=== PATIENT | female | born 1960 | race Caucasian/White ===

== ENCOUNTER 2017-07-01 11:41 | Observation (INO) ==
[2017-07-01 13:06] LABS: Bilirubin,Urine Negative (Negative); Blood,Urine Moderate (Negative); Color,Urine Yellow (Yellow); Glucose,Urine (UA) Normal (Normal); Ketones,Urine Trace mg/dL (Negative); Leukocyte Esterase,Urine Moderate (Negative); Nitrite,Urine Positive (Negative); Protein,Urine Negative (Neg-Trace); Urobilinogen,Urine Normal (Normal)
[2017-07-01 13:08] LABS: Bacteria,Urine Many per hpf (None-Few); Hyaline Casts,Urine Moderate per lpf (None-Few); Squamous Epithelial Cell,Urine Moderate per lpf (None-Few); WBC,Urine 30-50 per hpf (0-3)
[2017-07-01 13:11] LABS: Clarity,Urine Clear (Clear)
[2017-07-01 13:48] LABS: Basophils % 0.4 %; Eosinophils # 0.1 K/mcL (0.0-0.6); Eosinophils % 1.2 %; Hematocrit 36.4 % (35.3-44.9); Hemoglobin 12.3 g/dL (11.5-15.4); Immature Granulocytes % 0.2 % (0-4); Lymphocytes % 19.6 %; Mean Corpuscular HGB Conc 33.8 g/dL (31.6-35.5); Mean Corpuscular Hemoglobin 33.1 pg (28.0-33.3); Mean Corpuscular Volume 97.8 fL (83.0-100.0); Mean Platelet Volume 9.2 fL (9.4-12.4); Monocytes # 0.7 K/mcL (0.0-1.3); Monocytes % 6.5 %; Neutrophils # 7.3 K/mcL (1.6-8.9); Platelet Count 257 K/mcL (140-400); Red Blood Count 3.72 M/mcL (3.82-4.97); Segmented Neutrophils % 72.1 %
[2017-07-01 14:05] LABS: Alanine Aminotransferase 11 Units/L (0-55); Albumin 3.8 g/dL (3.5-5.0); Albumin/Globulin Ratio 1.3 (1.1-2.2); Alkaline Phosphatase 94 Units/L (38-126); Aspartate Amino Transferase 19 Units/L (5-34); BUN/Creatinine Ratio 11 (6-26); Bilirubin,Direct 0.2 mg/dL (0.0-0.5); Bilirubin,Indirect 0.3 mg/dL (0.0-1.2); Bilirubin,Total 0.5 mg/dL (0.2-1.2); Blood Urea Nitrogen 8 mg/dL (7-20); Calcium 9.5 mg/dL (8.6-10.8); Carbon Dioxide 23 mEq/L (19-29); Chloride 105 mEq/L (98-109); Globulin 2.9 g/dL (2.4-3.5); Glucose 96 mg/dL (70-99); Lipase 125 Units/L (8-78); Osmolality,Calculated 284 (280-300); Potassium 3.7 mEq/L (3.5-4.5); Sodium 138 mEq/L (136-145); Total Protein 6.7 g/dL (6.0-8.3); eGFR For African Americans > 60 (> 60); eGFR For Non-African Americans > 60 (> 60)
--- NOTE | 2017-07-01 14:37 | Emergency Department Note ---
Disposition Clinical Impression: Abdominal pain, Pancreatitis, Gastritis, UTI (urinary tract infection), History of gastric bypass Disposition: Admitted As Inpatient Referrals: Kimberly Xie MD [Primary Care Provider] - Forms: ED Satisfaction Letter, Work/School Release General Adult HPI - General Chief complaint: ED Abdominal Pain Stated complaint: abd pain Time Seen by Provider: 07/01/17 14:23 Source: patient Limitations: no limitations - History of Present Illness HPI Narrative: 57-year-old female reports emergency department with severe midepigastric pain which started last evening. There is no history of trauma vomiting or diarrhea. She is not anticoagulated. There is no history of rash or acute back pain. The patient describes been had a previous gastric bypass surgery as well as hysterectomy with complications requiring repair at the [facility]. The patient denies any fever. No chest pain or shortness of breath. There is no history of urinary symptoms or vaginal discharge or bleeding. There is no history of flank pain radiating to the groin. There is been no bloody stool or rectal bleeding she denies any history of gastritis. Pain tolerance the pain is severe in the midepigastric area and reproducible with palpation. Pain Scale: 10 - Related Data Home Medications Medication Instructions Recorded Confirmed Acetaminophen w/Cod 300-30 mg 1 - 2 each PO Q6H PRN 10/07/16 07/01/17 [Tylenol w/Codeine #3] Promethazine [Phenergan] 25 mg PO Q8HR PRN 10/07/16 07/01/17 Calcium Carbonate/Simethicone 1 each PO DAILY PRN 07/01/17 07/01/17 [[place] Heartburn+Gas] Allergies Allergy/AdvReac Type Severity Reaction Status Date / Time acetaminophen [From Percocet] AdvReac Hives Verified 07/01/17 11:57 aspirin [ASA] AdvReac Hives Verified 07/01/17 11:57 cefazolin [From Ancef] AdvReac Hives Verified 07/01/17 11:57 Oxycodone [From Percocet] AdvReac Hives Verified 07/01/17 11:57 Penicillins [PCN] AdvReac Hives Verified 07/01/17 11:57 propoxyphene AdvReac Hives Verified 07/01/17 11:57 [From Darvocet-N] All systems ED: reviewed and negative except as stated. 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 Absent: tenderness - Respiratory Respiratory exam: Present: normal lung sounds bilaterally. Absent: respiratory distress, wheezes, accessory muscle use, prolonged expiratory phase - Cardiovascular Cardiovascular exam: Present: regular rate, normal rhythm, normal heart sounds - Abdominal Exam Abdominal exam: Present: soft, tenderness. Absent: distention, guarding, rebound, rigidity, Coppola's sign, Rovsing's sign, tenderness at McBurney's Point , pulsatile mass Abdominal tenderness: Present: epigastrium - Extremities Exam Extremities exam: Present: normal inspection, full ROM, normal capillary refill. Absent: tenderness, pedal edema, joint swelling, calf tenderness - Expanded Lower Extremity Exam Neurovascular/Tendon exam: Present: normal capillary refill. Absent: motor deficit, sensory deficit, tendon deficit, extremity cold to touch, pallor - Back Exam Back exam: Present: normal inspection, full ROM. Absent: tenderness, CVA tenderness (R), CVA tenderness (L), vertebral tenderness - Neurological Exam Neurological exam: Present: alert, oriented X3, CN II-XII intact. Absent: motor sensory deficit - Psychiatric Psychiatric exam: Present: normal affect, normal mood - Skin Skin exam: Present: warm, dry, intact, normal color. Absent: rash, cyanosis, diaphoresis, erythema, pallor, mottled Course Vital Signs Temperature 97.9 F 07/01/17 11:53 Pulse Rate 81 07/01/17 11:53 Respiratory Rate 16 07/01/17 11:53 Blood Pressure 124/81 07/01/17 11:53 O2 Sat by Pulse Oximetry 99 07/01/17 11:53 Temperature 97.9 F 07/01/17 11:53 Pulse Rate 67 07/01/17 17:31 Respiratory Rate 16 07/01/17 17:31 Blood Pressure 128/60 07/01/17 17:31 O2 Sat by Pulse Oximetry 98 07/01/17 17:31 Oxygen Delivery Oxygen Delivery Room Air Medical Decision Making - MDM Narrative Medical decision making narrative: The patient describes severe midepigastric pain. EKG and troponin negative. Chest x-ray negative. CT scan reveals what appears to be gastric inflammation, there is no evidence of beau obstruction although a non-oral contrast study was obtained. The patient's lipase is somewhat elevated, she demonstrates urinalysis consistent with UTI Cipro was given IV. I lauded and Zofran were given in the ED as well as Protonix. The patient has had multiple abdominal surgeries including gastric bypass in the past. She appears to be stable. Based on the patient's apparent gastric inflammation, elevated lipase, and UTI, I felt it would be appropriate to admit the patient for observation. She is highly agreeable secondary to her concerns for severe abdominal pain. I reviewed the case with the hospitalist on-call who has accepted the patient to their care. - Lab Data Lab results reviewed: Yes I reviewed the patient's lab results. Result diagrams: 07/01/17 13:39 07/01/17 13:39 Lab Results 07/01/17 07/01/17 07/01/17 Range/Units 12:50 13:39 13:39 WBC 10.2 (4.3-11.1) K/mcL RBC 3.72 L (3.82-4.97) M/mcL Hgb 12.3 (11.5-15.4) g/dL Hct 36.4 (35.3-44.9) % MCV 97.8 (83.0-100.0) fL MCH 33.1 (28.0-33.3) pg MCHC 33.8 (31.6-35.5) g/dL RDW 12.0 (11.5-14.5) % Plt Count 257 (140-400) K/mcL MPV 9.2 L (9.4-12.4) fL Immature Gran % 0.2 (0-4) % Seg Neutrophils % 72.1 % Lymphocytes % 19.6 % Monocytes % 6.5 % Eosinophils % 1.2 % Basophils % 0.4 % Neutrophils # 7.3 (1.6-8.9) K/mcL Lymphocytes # 2.0 (0.6-4.6) K/mcL Monocytes # 0.7 (0.0-1.3) K/mcL Eosinophils # 0.1 (0.0-0.6) K/mcL Basophils # 0.0 (0.0-0.2) K/mcL Sodium 138 (136-145) mEq/L Potassium 3.7 (3.5-4.5) mEq/L Chloride 105 (98-109) mEq/L Carbon Dioxide 23 (19-29) mEq/L BUN 8 (7-20) mg/dL Creatinine 0.70 (0.57-1.11) mg/dL Est GFR ( Amer) > 60 (> 60) Est GFR (Non-Af Amer) > 60 (> 60) BUN/Creatinine Ratio 11 (6-26) Glucose 96 (70-99) mg/dL Calculated Osmolality 284 (280-300) Lactic Acid (0.5-2.2) mmol/L Calcium 9.5 (8.6-10.8) mg/dL Total Bilirubin 0.5 (0.2-1.2) mg/dL Direct Bilirubin 0.2 (0.0-0.5) mg/dL Indirect Bilirubin 0.3 (0.0-1.2) mg/dL AST 19 (5-34) Units/L ALT 11 (0-55) Units/L Alkaline Phosphatase 94 (38-126) Units/L Troponin I (0-0.03) ng/mL C-Reactive Protein (Less than 5) mg/L Serum Total Protein 6.7 (6.0-8.3) g/dL Albumin 3.8 (3.5-5.0) g/dL Globulin 2.9 (2.4-3.5) g/dL Albumin/Globulin Ratio 1.3 (1.1-2.2) Lipase 125 H (8-78) Units/L Urine Color Yellow (Yellow) Urine Clarity Clear (Clear) Urine pH 6.0 (5.0-8.0) pH Units Ur Specific [place] 1.020 (1.010-1.025) Urine Protein Negative (Neg-Trace) mg/dL Urine Glucose (UA) Normal (Normal) mg/dL Urine Ketones Trace H (Negative) mg/dL Urine Blood Moderate H (Negative) Urine Nitrite Positive A (Negative) Urine Bilirubin Negative (Negative) Urine Urobilinogen Normal (Normal) mg/dL Ur Leukocyte Esterase Moderate H (Negative) Urine Microscopic RBC 3-5 H (0-3) per hpf Urine Microscopic WBC 30-50 H (0-3) per hpf Ur Squamous Epith Cells Moderate H (None-Few) per lpf Urine Bacteria Many H (None-Few) per hpf Hyaline Casts Moderate H (None-Few) per lpf 07/01/17 07/01/17 07/01/17 Range/Units 14:55 14:55 14:55 WBC (4.3-11.1) K/mcL RBC (3.82-4.97) M/mcL Hgb (11.5-15.4) g/dL Hct (35.3-44.9) % MCV (83.0-100.0) fL MCH (28.0-33.3) pg MCHC (31.6-35.5) g/dL RDW (11.5-14.5) % Plt Count (140-400) K/mcL MPV (9.4-12.4) fL Immature Gran % (0-4) % Seg Neutrophils % % Lymphocytes % % Monocytes % % Eosinophils % % Basophils % % Neutrophils # (1.6-8.9) K/mcL Lymphocytes # (0.6-4.6) K/mcL Monocytes # (0.0-1.3) K/mcL Eosinophils # (0.0-0.6) K/mcL Basophils # (0.0-0.2) K/mcL Sodium (136-145) mEq/L Potassium (3.5-4.5) mEq/L Chloride (98-109) mEq/L Carbon Dioxide (19-29) mEq/L BUN (7-20) mg/dL Creatinine (0.57-1.11) mg/dL Est GFR ( Amer) (> 60) Est GFR (Non-Af Amer) (> 60) BUN/Creatinine Ratio (6-26) Glucose (70-99) mg/dL Calculated Osmolality (280-300) Lactic Acid 0.6 (0.5-2.2) mmol/L Calcium (8.6-10.8) mg/dL Total Bilirubin (0.2-1.2) mg/dL Direct Bilirubin (0.0-0.5) mg/dL Indirect Bilirubin (0.0-1.2) mg/dL AST (5-34) Units/L ALT (0-55) Units/L Alkaline Phosphatase (38-126) Units/L Troponin I 0.02 (0-0.03) ng/mL C-Reactive Protein 6 H (Less than 5) mg/L Serum Total Protein (6.0-8.3) g/dL Albumin (3.5-5.0) g/dL Globulin (2.4-3.5) g/dL Albumin/Globulin Ratio (1.1-2.2) Lipase (8-78) Units/L Urine Color (Yellow) Urine Clarity (Clear) Urine pH (5.0-8.0) pH Units Ur Specific [place] (1.010-1.025) Urine Protein (Neg-Trace) mg/dL Urine Glucose (UA) (Normal) mg/dL Urine Ketones (Negative) mg/dL Urine Blood (Negative) Urine Nitrite (Negative) Urine Bilirubin (Negative) Urine Urobilinogen (Normal) mg/dL Ur Leukocyte Esterase (Negative) Urine Microscopic RBC (0-3) per hpf Urine Microscopic WBC (0-3) per hpf Ur Squamous Epith Cells (None-Few) per lpf Urine Bacteria (None-Few) per hpf Hyaline Casts (None-Few) per lpf - Radiology Data Radiology results reviewed: Yes I reviewed the patient's radiology results.
[2017-07-01] MEDS ORDERED: *HR* HYDROmorphone (PF) 1 MG/ML SYRINGE IVP ONE (16:37)
[2017-07-01] MEDS ORDERED: Ondansetron 4 MG/2 ML VIAL IVP ONE (16:37)
[2017-07-01] MEDS ORDERED: Pantoprazole 40 MG VIAL IVP ONE (16:56)
[2017-07-01] MEDS ORDERED: Naloxone 0.4 MG/ML INJ IVP PRN (20:15)
[2017-07-01] MEDS ORDERED: GI Cocktail 40 ML EACH PO ONE (20:17)
--- NOTE | 2017-07-01 20:24 | Internal Med History&Physical ---
Date of Encounter: 07/01/17 Time of Encounter: 20:20 Assessment and Plan (1) Gastritis Current visit: Yes Status: Acute epigastric pain likely secondary to Gastritis will continue IV protonix BID will give patient GI cocktail at this time Added Carafate QID pain control clear liquid diet at this time Phenergan prn n/v elevated lipase but CT findings negative for any pancreatic etiology and patient 's clinical presentation not consistent with pancreatitis will continue supportive care, consider GI evaluation for an EGD if symptoms persist despite the above management. Qualifiers: Gastritis type: unspecified gastritis Chronicity: acute Gastritis bleeding: without bleeding Qualified Code(s): K29.00 - Acute gastritis without bleeding (2) UTI (urinary tract infection) Current visit: Yes Status: Acute Will continue IV abx f/u urine cultures Qualifiers: Urinary tract infection type: acute cystitis Hematuria presence: without hematuria Qualified Code(s): N30.00 - Acute cystitis without hematuria (3) Tobacco abuse Current visit: No Status: Chronic smoking cessation counseling provided patient not ready to quit at this time Pt refused nicotine supplementation (4) History of gastric bypass Current visit: Yes Status: Chronic (5) DVT prophylaxis Current visit: Yes Status: Acute Heparin SQ Internal Medicine - H&P: HPI Chief complaint: epigastric pain Admitted From: Home Plans for Post Hospital Care: Home History of present illness: Ms. Xiong is a 57 year old female with PMH of gastric bypass 15years ago, GERD, and hysterectomy with bladder complications presented to the hospital for evaluation of worsening epigastric pain x 1 day. Patient reports of waking up with localized sharp epigastric pain yesterday morning which persisted through out the day despite her taking her antiacids at home. She states she has been nauseous which has been relieved by Phenergan at home. States she gets this epigastric pain time to time but has never persisted for this long. Reports of the pain being unbearable today which prompted her visit to the ER. She denies any alleviating or exacerbating factors. Denies any alcohol use. Reports of being an every day smoker. States the pain is localized with no radiation. Patient is reproducible with palpation. Also noted to have a UTI, states she has history of recurrent UTIs but denies any dysuria at this time. Denies any headache, sob, chest pain, fevers, or chills. Social history: Every day smoker (1ppd), denies alcohol use Code status: Full code Past Med Surg Social Fam HX - Past Medical History Medical history: GERD, other Psychiatric history: no psych history - Past Surgical History Surgical History: hysterectomy - Social History Smoking Status: Current every day smoker Smokeless Tobacco Status: No Alcohol use: none Drug use: none - Family History Mother Adopted: [place]: Maricel Patiño Age: 73 Living Status: Age at : 73 Cause of : end stage copd Hx Family Cardiac Disorders: No Hx Family Respiratory Disorders: Yes Hx Family Cancer: No Hx Family GI Disorders: No Hx Family Genitourinary Disorders: No Hx Family Endocrine Disorder: Yes Hx Family Musculoskeletal Disorders: No Hx Family Neurologic Disorders: No Hx Family HEENT Disorders: No Hx Family Autoimmune Disorders: No Hx Family Reproductive Disorders: No Hx Family Psychosocial Disorders: No Hx Family Medical Disorders: No Internal Medicine - H&P: Meds Acetaminophen w/Cod 300-30 mg [Tylenol w/Codeine #3] 1 - 2 each PO Q6H PRN 10/07 [History] Promethazine [Phenergan] 25 mg PO Q8HR PRN 10/07/16 [History] Calcium Carbonate/Simethicone [[place] Heartburn+Gas] 1 each PO DAILY PRN 07/01/17 [History] 3 Allergy/AdvReac Type Severity Reaction Status Date / Time acetaminophen [From Percocet] AdvReac Hives Verified 07/01/17 11:57 aspirin [ASA] AdvReac Hives Verified 07/01/17 11:57 cefazolin [From Ancef] AdvReac Hives Verified 07/01/17 11:57 Oxycodone [From Percocet] AdvReac Hives Verified 07/01/17 11:57 Penicillins [PCN] AdvReac Hives Verified 07/01/17 11:57 propoxyphene AdvReac Hives Verified 07/01/17 11:57 [From Darvocet-N] All Systems PM: A 10-system review of systems was performed and is negative for pertinent findings except as documented above in the HPI. - Constitutional Constitutional: as per HPI - Constitutional Vitals: Temp Pulse Resp BP Pulse Ox 98.8 F 57 15 114/55 98 07/01/17 18:28 07/01/17 18:28 07/01/17 18:28 07/01/17 18:28 07/01/17 18:28 General appearance: Present: cooperative, A&O X 3, pleasant, no acute distress, answers questions appropriately - Head Head exam: Present: atraumatic, normocephalic - Eye Eye exam: Present: conjuntiva pink, sclera anicteric - Respiratory Respiratory exam: Present: CTAB. Absent: accessory muscle use, rales, rhonchi, wheezes - Cardiovascular Cardiovascular exam: Present: RRR, +S1, +S2. Absent: diastolic murmur, gallop, rubs, systolic murmur - GI/Abdominal GI/Abdominal exam: Present: normal bowel sounds, soft, tenderness (epigastric tenderness to palpation), no peritoneal signs. Absent: distended - Extremities Exam Extremities exam: Present: warm, radial pulses palpable and symmetrical. Absent : calf tenderness, cyanotic, pedal edema - Neurological Exam Neurological exam: Present: alert, oriented X3 - Psychiatric Psychiatric exam: Present: normal affect, normal mood Internal Med - H&P Results - Labs CBC & Chem 7: 07/01/17 13:39 07/01/17 13:39
[2017-07-01] MEDS: *HR* Promethazine 25 MG/ML VIAL IVP PRN (21:05)
[2017-07-01] MEDS: 0.9 % Sodium Chloride 1,000 ML IVC SCH (21:06)
[2017-07-01] MEDS: Sucralfate 1 GM TABLET PO SCH (21:58)
[2017-07-02] MEDS: *HR* Morphine 2 MG/ML SYRINGE IVP PRN ×2 (04:03→10:36)
[2017-07-02] MEDS: *HR* Promethazine 25 MG/ML VIAL IVP PRN ×4 (04:06→23:32)
[2017-07-02 05:13] LABS: Basophils % 0.7 %; Eosinophils # 0.3 K/mcL (0.0-0.6); Eosinophils % 4.4 %; Hematocrit 33.5 % (35.3-44.9); Hemoglobin 11.3 g/dL (11.5-15.4); Immature Granulocytes % 0.4 % (0-4); Lymphocytes # 2.2 K/mcL (0.6-4.6); Lymphocytes % 39.2 %; Mean Corpuscular HGB Conc 33.7 g/dL (31.6-35.5); Mean Corpuscular Hemoglobin 33.4 pg (28.0-33.3); Mean Corpuscular Volume 99.1 fL (83.0-100.0); Mean Platelet Volume 9.8 fL (9.4-12.4); Monocytes # 0.5 K/mcL (0.0-1.3); Monocytes % 9.1 %; Neutrophils # 2.6 K/mcL (1.6-8.9); Platelet Count 204 K/mcL (140-400); Red Blood Count 3.38 M/mcL (3.82-4.97); Segmented Neutrophils % 46.2 %
[2017-07-02] MEDS: *HR* Heparin 5,000 UNIT/ML VIAL SQ SCH ×2 (05:33→17:00)
[2017-07-02] MEDS: Pantoprazole 40 MG VIAL IVP SCH ×2 (05:33→16:53)
[2017-07-02 05:34] LABS: Alanine Aminotransferase 10 Units/L (0-55); Albumin 3.2 g/dL (3.5-5.0); Albumin/Globulin Ratio 1.2 (1.1-2.2); Alkaline Phosphatase 80 Units/L (38-126); Aspartate Amino Transferase 18 Units/L (5-34); BUN/Creatinine Ratio 9 (6-26); Bilirubin,Total 0.6 mg/dL (0.2-1.2); Blood Urea Nitrogen 6 mg/dL (7-20); Calcium 8.9 mg/dL (8.6-10.8); Carbon Dioxide 25 mEq/L (19-29); Chloride 107 mEq/L (98-109); Globulin 2.6 g/dL (2.4-3.5); Glucose 95 mg/dL (70-99); Osmolality,Calculated 287 (280-300); Phosphorous 3.7 mg/dL (2.3-4.7); Potassium 3.7 mEq/L (3.5-4.5); Sodium 140 mEq/L (136-145); Total Protein 5.8 g/dL (6.0-8.3); eGFR For African Americans > 60 (> 60); eGFR For Non-African Americans > 60 (> 60)
[2017-07-02] MEDS: Sucralfate 1 GM TABLET PO SCH ×3 (07:50→22:27)
[2017-07-02] MEDS: *HR* HYDROmorphone (PF) 1 MG/ML SYRINGE IVP PRN ×4 (07:50→23:32)
--- NOTE | 2017-07-02 09:49 | Internal Med Progress Note ---
<Bryan Ulloa - Last Filed: 07/02/17 14:56> Date of Encounter: 07/02/17 Time of Encounter: 08:45 - Assessment and plan (1) Abdominal pain Current Visit: Yes Status: Acute Assessment and plan: epigastric abd pn likely secondary to peptic ulcer disease. Patient with hx of gerd sxs on home zantac GI consulted for EGD EGD revealed 2cm ulcer continue PPI BID Continue Carafate QID Continue Phenergan prn due to epigastric nature of pain and hx of tobacco use will check and echo to monitor cardiac function. Qualifiers: Abdominal location: epigastric Qualified Code(s): R10.13 - Epigastric pain (2) UTI (urinary tract infection) Current Visit: Yes Status: Acute Assessment and plan: present upon admission continue Abx ucx pending. Qualifiers: Urinary tract infection type: acute cystitis Hematuria presence: without hematuria Qualified Code(s): N30.00 - Acute cystitis without hematuria (3) History of gastric bypass Current Visit: Yes Status: Chronic (4) Tobacco abuse Current Visit: No Status: Chronic Assessment and plan: pt refusing nicotine supplementation at this time. - Subjective Interval history: Patient complaining of epigastric x 1 day. She has been taking zantac at home s relief. She reports nausea denies vomiting or diarrhea. No blood in stool. Pt denies Chest pain, SOB, dysuria. - Constitutional Vitals: Temp Pulse Resp BP Pulse Ox 97.7 F 91 17 112/73 96 07/02/17 06:59 07/02/17 06:59 07/02/17 06:59 07/02/17 06:59 07/02/17 06:59 General appearance: Present: cooperative, A&O X 3, pleasant, no acute distress, answers questions appropriately - Head Head exam: Present: atraumatic, normocephalic - Eye Eye exam: Present: PERRL, conjuntiva pink, sclera anicteric Pupils: Present: PERRL - Neck Neck exam general surgery: Present: supple, trachea midline - Respiratory Respiratory exam: Present: CTAB. Absent: accessory muscle use, rales, rhonchi, wheezes - Cardiovascular Cardiovascular exam: Present: RRR, +S1, +S2. Absent: diastolic murmur, gallop, rubs, systolic murmur - GI/Abdominal GI/Abdominal exam: Present: normal bowel sounds, soft, tenderness (epigastric region), no peritoneal signs. Absent: distended - Extremities Exam Extremities exam: Present: warm. Absent: calf tenderness, cyanotic, pedal edema - Neurological Exam Neurological exam: Present: alert, oriented X3. Absent: facial droop, speech deficit - Skin Skin exam: Present: dry, intact Internal Medicine: Result - Labs CBC & Chem 7: 07/02/17 04:21 07/02/17 04:21 Labs: Short CBC 07/02/17 Range/Units 04:21 WBC 5.7 (4.3-11.1) K/mcL Hgb 11.3 L (11.5-15.4) g/dL Hct 33.5 L (35.3-44.9) % Plt Count 204 (140-400) K/mcL Neutrophils # 2.6 (1.6-8.9) K/mcL BMP 07/02/17 04:21 Sodium 140 Potassium 3.7 Chloride 107 Carbon Dioxide 25 BUN 6 L Creatinine 0.69 Glucose 95 Calcium 8.9 Liver Function 07/02/17 Range/Units 04:21 Total Bilirubin 0.6 (0.2-1.2) mg/dL AST 18 (5-34) Units/L ALT 10 (0-55) Units/L Alkaline Phosphatase 80 (38-126) Units/L Albumin 3.2 L (3.5-5.0) g/dL Consult Discharge Plan - Plan Referrals: Kimberly Xie MD [Primary Care Provider] - <Willis Marie P - Last Filed: 07/02/17 16:53> Date of Encounter: 07/02/17 - Constitutional Vitals: Temp Pulse Resp BP Pulse Ox 97.9 F 47 16 111/71 99 07/02/17 15:15 07/02/17 15:15 07/02/17 15:15 07/02/17 15:15 07/02/17 15:15 Internal Medicine: Result - Labs CBC & Chem 7: 07/02/17 04:21 07/02/17 04:21 Labs: Short CBC 07/02/17 Range/Units 04:21 WBC 5.7 (4.3-11.1) K/mcL Hgb 11.3 L (11.5-15.4) g/dL Hct 33.5 L (35.3-44.9) % Plt Count 204 (140-400) K/mcL Neutrophils # 2.6 (1.6-8.9) K/mcL BMP 07/02/17 04:21 Sodium 140 Potassium 3.7 Chloride 107 Carbon Dioxide 25 BUN 6 L Creatinine 0.69 Glucose 95 Calcium 8.9 Cardiac Enzymes 07/02/17 Range/Units 09:25 Troponin I 0.00 (0-0.03) ng/mL Liver Function 07/02/17 Range/Units 04:21 Total Bilirubin 0.6 (0.2-1.2) mg/dL AST 18 (5-34) Units/L ALT 10 (0-55) Units/L Alkaline Phosphatase 80 (38-126) Units/L Albumin 3.2 L (3.5-5.0) g/dL - Attending Attestation I examined this patient and my medical decision-making was reviewed with the Resident Physician. I agree with the documented findings, disposition and treatment plan as described except to the extent set forth below.
[2017-07-02] MEDS ORDERED: *HR* Midazolam HCl 5 MG/5 ML VIAL IVP ONE (11:19)
[2017-07-02] MEDS ORDERED: *HR* FentaNYL (PF) 100 MCG/2 ML VIAL ONE (11:19)
[2017-07-02] MEDS ORDERED: Simethicone 40 MG/0.6 ML MLS IR ONE (11:23)
[2017-07-02] MEDS ORDERED: *HR* Midazolam HCl 5 MG/5 ML VIAL IVP PRN (11:23)
[2017-07-02] MEDS ORDERED: Tetracaine/Benzocaine/Butamben 200MG/SPRAY (100SPY/BOT) MM ONE (11:23)
[2017-07-02] MEDS ORDERED: *HR* FentaNYL (PF) 100 MCG/2 ML VIAL IVP PRN (11:23)
--- NOTE | 2017-07-02 11:34 | Pre-Sedation Evaluation ---
Pre-sedation evaluation - Pre-sedation checklist Recent Vitals: Last Vital Signs Temp 98.2 F 07/02/17 11:18 Pulse 53 07/02/17 11:18 Resp 18 07/02/17 11:18 BP 103/64 07/02/17 11:18 Pulse Ox 97 07/02/17 11:18 H&P (including ROS) documented in medical record: Yes Previous reaction to sedatives/anesthetics: No Dietary Status: Clear fluids after Midnight Possible difficult airway: No ASA Classification *see protocol: CLASS II-Mild systemic disease
--- NOTE | 2017-07-02 12:00 | Gastroenterology Consult Note ---
<Carlos Omer - Last Filed: 07/02/17 11:58> Date of Encounter: 07/02/17 Time of Encounter: 10:15 - Assessment and plan (1) Abdominal pain Status: Acute Assessment and plan: Pt with epigastric pain. She has been taking Zantac at home which is not controlling her symptoms. Plan for EGD today to r/o esophagitis, gastritis, duodenitis, PUD, MW tear, or AVM. Continue Protonix. Lipase is elevated to [address] findings negative for any pancreatic etiology and patient's clinical presentation not consistent with pancreatitis. Qualifiers: Abdominal location: epigastric Qualified Code(s): R10.13 - Epigastric pain (2) History of gastric bypass Status: Chronic - Time Spent With Patient Total time spent is greater than 50% in coordination of care (as documented) at patient's floor/unit and/or counseling patient: GI History of Present Illness - Data of Consult Patient: new to practice Consult date: 07/02/17 Requesting Physician: Cassi Sullivan MD - Consult Narrative Reason for consult: GERD, EGD History of present illness: Ms. Xiong is a 57 year old female with PMHx of GERD, s/p gastric bypass 15 years ago who presented for evaluation of epigastric pain 1 day. Patient reports of waking up with localized sharp epigastric pain (no radiation) which persisted through out the day despite her taking her antiacids at home. She states she has been nauseous which has been relieved by Phenergan at home. States she gets this epigastric pain time to time but has never persisted for this long. No exacerbating or alleviating factors. Patient denies any alcohol use. She denies fevers, chills, test pain, shortness of breath, nausea, vomiting , melena, hematochezia. CT scan reveals what appears to be gastric inflammation , there is no evidence of beau obstruction. Lipase is elevated to [address] findings negative for any pancreatic etiology and patient's clinical presentation not consistent with pancreatitis. Procedures: EGD 03/04/2011 Dr. Rm: Normal, intact gastric pouch Colonoscopy 09/02/2005 Dr. Rm: Left colon biopsy with melanosis coli. NSAIDs: None Anticoagulation: None Past Med Surg Social Fam HX - Past Medical History Medical history: GERD, other Psychiatric history: no psych history - Past Surgical History Surgical History: hysterectomy - Social History Smoking Status: Current every day smoker Smokeless Tobacco Status: No Alcohol use: none Drug use: none - Family History Mother Adopted: Organ: Maricel Patiño Age: 73 Living Status: Age at : 73 Cause of : end stage copd Hx Family Cardiac Disorders: No Hx Family Respiratory Disorders: Yes Hx Family Cancer: No Hx Family GI Disorders: No Hx Family Genitourinary Disorders: No Hx Family Endocrine Disorder: Yes Hx Family Musculoskeletal Disorders: No Hx Family Neurologic Disorders: No Hx Family HEENT Disorders: No Hx Family Autoimmune Disorders: No Hx Family Reproductive Disorders: No Hx Family Psychosocial Disorders: No Hx Family Medical Disorders: No - Gastrointestinal Gastrointestinal: Present: as per HPI - Constitutional Constitutional: as per HPI - EENT Eyes: as per HPI Ears: Present: as per HPI Nose, mouth and throat: Present: as per HPI - Cardiovascular Cardiovascular ROS: Present: as per HPI - Respiratory Respiratory IM: Present: as per HPI - Genitourinary Genitourinary: Absent: change in color, Urinary frequency - Neurological ROS Neurological GI: Present: as per HPI - Hematologic/Lymphatic Hematologic/Lymphatic pediatric: Present: as per HPI - Musculoskeletal Musculoskeletal ROS GI: Present: as per HPI - Integumentary Integumentary GI: Present: as per HPI - Psychiatric ROS Psychiatric GI: Present: as per HPI - Endocrine Endocrine IM: Present: as per HPI - Constitutional Vitals: Temp Pulse Resp BP Pulse Ox 98.2 F 70 14 94/59 98 07/02/17 11:35 07/02/17 11:45 07/02/17 11:45 07/02/17 11:45 07/02/17 11:45 General appearance: Present: cooperative, A&O X 3, no acute distress, answers questions appropriately - Head Head exam: Present: atraumatic, normocephalic - Eye Eye exam: Present: normal appearance, sclera anicteric - ENT ENT exam: Present: mucous membranes dry - Neck Neck exam general surgery: Present: normal inspection, trachea midline - Respiratory Respiratory exam: Present: CTAB. Absent: rales, rhonchi - Cardiovascular Cardiovascular exam: Present: RRR, +S1, +S2 - GI/Abdominal GI/Abdominal exam: Present: normal bowel sounds, soft, tenderness (epigastric), no peritoneal signs. Absent: distended, firm, guarding - Rectal Rectal exam: Present: deferred - Extremities Exam Extremities exam: Present: warm - Neurological Exam Neurological exam: Present: no focal deficits - Psychiatric Psychiatric exam: Present: normal affect, normal mood - Skin Skin exam: Present: dry, intact, normal color, warm Results - Labs CBC & Chem 7: 07/02/17 04:21 07/02/17 04:21 Labs: Last Result Calcium 8.9 mg/dL (8.6-10.8) 07/02/17 04:21 Troponin I 0.00 ng/mL (0-0.03) 07/02/17 09:25 C-Reactive Protein 6 mg/L (Less than 5) H 07/01/17 14:55 Entire Visit Hgb 11.3 g/dL (11.5-15.4) L 07/02/17 04:21 Hct 33.5 % (35.3-44.9) L 07/02/17 04:21 Total Bilirubin 0.6 mg/dL (0.2-1.2) 07/02/17 04:21 AST 18 Units/L (5-34) 07/02/17 04:21 ALT 10 Units/L (0-55) 07/02/17 04:21 Lipase 125 Units/L (8-78) H 07/01/17 13:39 Consult Discharge Plan - Plan Instructions: Gastritis (DC), Urinary Tract Infection in Women (DC) Referrals: Donny Vallejo MD [Partnered Physician] - Kimberly Xie MD [Primary Care Provider] - Prescriptions: Sucralfate [Carafate] 1 gm PO DA #120 tablet <Donny Vallejo - Last Filed: 07/05/17 17:09> Date of Encounter: 07/02/17 - Time Spent With Patient Total time spent is greater than 50% in coordination of care (as documented) at patient's floor/unit and/or counseling patient: GI History of Present Illness - Data of Consult Requesting Physician: Cassi Sullivan MD - Consult Narrative History of present illness: Ms. Xiong is a 57 year old female - Constitutional Vitals: Temp Pulse Resp BP Pulse Ox 96.9 F L 62 16 104/71 97 07/03/17 06:49 07/03/17 06:49 07/03/17 06:49 07/03/17 06:49 07/03/17 06:49 Results - Labs CBC & Chem 7: 07/03/17 04:34 07/03/17 04:34 Labs: Last Result Calcium 8.8 mg/dL (8.6-10.8) 07/03/17 04:34 Troponin I 0.00 ng/mL (0-0.03) 07/02/17 09:25 C-Reactive Protein 6 mg/L (Less than 5) H 07/01/17 14:55 Entire Visit Hgb 11.6 g/dL (11.5-15.4) 07/03/17 04:34 Hct 35.0 % (35.3-44.9) L 07/03/17 04:34 Total Bilirubin 0.6 mg/dL (0.2-1.2) 07/02/17 04:21 AST 18 Units/L (5-34) 07/02/17 04:21 ALT 10 Units/L (0-55) 07/02/17 04:21 Lipase 125 Units/L (8-78) H 07/01/17 13:39 - Impressions Impressions Echocardiogram 07/02/17 09:10 Impressions: LVEF 60%. Normal left ventricular size and systolic function. There is evidence of mild diastolic dysfunction of the left ventricle. Normal right ventricular size and function. No significant valvular dysfunction. No pulmonary hypertension by TR gradient. Left Ventricular Wall Motion: Rest Echo Findings All wall segments showed normal motion. Findings: Study Quality * Technically adequate exam. ECG Findings * Normal sinus rhythm. Left Ventricle * LVEF 60%. * Normal LV chamber size, wall thickness and function. * Mild left ventricular diastolic dysfunction. Aorta * Normally sized aortic root. Aortic Valve * No aortic regurgitation. * Trileaflet aortic valve. * Normal aortic valve structure. * No aortic stenosis. Mitral Valve * No mitral stenosis. * Mild mitral annular calcification * Trace mitral regurgitation. * Mildly calcified mitral valve leaflets. Tricuspid Valve * Trace tricuspid regurgitation. * Normal tricuspid valve structure. Right Ventricle * Normal right ventricular structure and function. Left Atrium * Moderately dilated left atrium. Right Atrium * Normal right atrial size. Pulmonary Artery * Pulmonary artery not well visualized. Interatrial Septum * Interatrial septum not well evaluated. Pulmonic Valve * Pulmonic valve is not well visualized. * No pulmonic stenosis. * No pulmonic regurgitation. Pericardium * There is no pericardial effusion present. IVC * The IVC is not well evaluated. - Attending Attestation 57 year old female admitted with epigastric pain and worsening anemia S/P gastric bypass faithfully taking her iron supplementation daily per patient. Personally interviewed and examined her. Patient may need IV iron, oral iron not producing adequate correction of her anemia. She also has CKD on HD will check if she is also getting Procrit. Agree with above data and assessment
[2017-07-02] MEDS: 0.9 % Sodium Chloride 1,000 ML IVC SCH (12:16)
[2017-07-03] MEDS: 0.9 % Sodium Chloride 1,000 ML IVC SCH (01:45)
[2017-07-03 05:46] LABS: Hemoglobin 11.6 g/dL (11.5-15.4); Mean Corpuscular HGB Conc 33.1 g/dL (31.6-35.5); Mean Corpuscular Hemoglobin 33.2 pg (28.0-33.3); Mean Corpuscular Volume 100.3 fL (83.0-100.0); Platelet Count 231 K/mcL (140-400); Red Blood Count 3.49 M/mcL (3.82-4.97); Red Cell Distribution Width 12.1 % (11.5-14.5)
[2017-07-03 05:58] LABS: BUN/Creatinine Ratio 13 (6-26); Blood Urea Nitrogen 10 mg/dL (7-20); Calcium 8.8 mg/dL (8.6-10.8); Carbon Dioxide 24 mEq/L (19-29); Chloride 111 mEq/L (98-109); Glucose 98 mg/dL (70-99); Osmolality,Calculated 291 (280-300); Potassium 3.8 mEq/L (3.5-4.5); Sodium 141 mEq/L (136-145); eGFR For African Americans > 60 (> 60); eGFR For Non-African Americans > 60 (> 60)
[2017-07-03] MEDS: *HR* Heparin 5,000 UNIT/ML VIAL SQ SCH (06:11)
[2017-07-03] MEDS: Pantoprazole 40 MG VIAL IVP SCH (06:11)
[2017-07-03] MEDS: *HR* Promethazine 25 MG/ML VIAL IVP PRN (06:29)
[2017-07-03 06:53] VITALS: BP 104/71
[2017-07-03] MEDS: Sucralfate 1 GM TABLET PO SCH (07:41)
--- NOTE | 2017-07-03 08:24 | Discharge Summary ---
Date of Encounter: 07/03/17 Time of Encounter: 08:20 - Discharge Diagnosis (1) Abdominal pain Priority: Primary Status: Acute Qualifiers: Abdominal location: epigastric Qualified Code(s): R10.13 - Epigastric pain (2) Gastritis Priority: Primary Status: Acute Qualifiers: Gastritis type: unspecified gastritis Chronicity: acute Gastritis bleeding: without bleeding Qualified Code(s): K29.00 - Acute gastritis without bleeding (3) UTI (urinary tract infection) Priority: Primary Status: Acute Qualifiers: Urinary tract infection type: acute cystitis Hematuria presence: without hematuria Qualified Code(s): N30.00 - Acute cystitis without hematuria (4) DVT prophylaxis Priority: Secondary Status: Acute - Discharge Medications Prescriptions: Sucralfate [Carafate] 1 gm PO QIDAC #120 tablet Home Medications: Acetaminophen w/Cod 300-30 mg [Tylenol w/Codeine #3] 1 - 2 each PO Q6H PRN 10/07 [History] Promethazine [Phenergan] 25 mg PO Q8HR PRN 10/07/16 [History] Calcium Carbonate/Simethicone [[place] Heartburn+Gas] 1 each PO DAILY PRN 07/01/17 [History] Sucralfate [Carafate] 1 gm PO QIDAC #120 tablet 07/03/17 [Rx] Allergies/Adverse Reactions: 3 Allergy/AdvReac Type Severity Reaction Status Date / Time acetaminophen [From Percocet] AdvReac Hives Verified 07/01/17 11:57 aspirin [ASA] AdvReac Hives Verified 07/01/17 11:57 cefazolin [From Ancef] AdvReac Hives Verified 07/01/17 11:57 Oxycodone [From Percocet] AdvReac Hives Verified 07/01/17 11:57 Penicillins [PCN] AdvReac Hives Verified 07/01/17 11:57 propoxyphene AdvReac Hives Verified 07/01/17 11:57 [From Darvocet-N] Procedures/tests Complete & Pending: Procedures Performed prior 72 hours Category Date Time Status EV echocardiogram Routine Y 07/02/17 09:10 Completed Date of admission: 07/01/17 17:59 Primary care physician: Kimberly Xie Consults: 07/02/17 08:56 Consult to Gastroenterology [CONS] Routine Consulting Provider: Brittanie Bailey Reason for Consult: Consult for EGD. Patient with Hx of GERD presenting with PUD symptoms. Time Notified: :22 Call Completed: Yes Discharging clinician: Willis Marie - Patient Status Disposition: Home, Self-Care Condition: Fair Functional capacity at discharge: independent ambulation Overall status at discharge: patient is progressing back to baseline - Discharge Instructions Follow Up With: Kimberly Xie MD [Primary Care Provider] - Donny Vallejo MD [Partnered Physician] - - Diet and Activity Activity: increase activity as tolerated Diet: low fat, low cholesterol Interval History: Ms. Xiong is a 57 year old female with PMH of gastric bypass 15years ago, GERD, and hysterectomy with bladder complications presented to the hospital for evaluation of worsening epigastric pain x 1 day. Patient reports of waking up with localized sharp epigastric pain yesterday morning which persisted through out the day despite her taking her antiacids at home. She states she has been nauseous which has been relieved by Phenergan at home. States she gets this epigastric pain time to time but has never persisted for this long. Reports of the pain being unbearable today which prompted her visit to the ER. She denies any alleviating or exacerbating factors. Denies any alcohol use. Reports of being an every day smoker. States the pain is localized with no radiation. Patient is reproducible with palpation. Also noted to have a UTI, states she has history of recurrent UTIs but denies any dysuria at this time. Denies any headache, sob, chest pain, fevers, or chills. Hospital course: Patient was hospitalized. Gastroenterology was consulted. Patient underwent esophagogastroduodenoscopy. Nonbleeding gastric ulcer with no stigmata of bleeding, maximum size 20 mm. Biopsies taken. Another nonbleeding jejunal ulcer with no stigmata of bleeding. Patient was started on 1 g of sucralfate before meals and at bedtime. I have given a prescription for 1 month. Patient is keen for home today. Plan: Home today. Follow up with GI in 1-2 weeks. Follow-up with PCP in 1-2 weeks. At the time of discharge QUESTIONS answered. - Time Spent with Patient Total time spent providing and/or coordinating discharge services: - Constitutional Vitals: Temp Pulse Resp BP Pulse Ox 96.9 F L 62 16 104/71 97 07/03/17 06:49 07/03/17 06:49 07/03/17 06:49 07/03/17 06:49 07/03/17 06:49 General appearance: Present: cooperative, A&O X 3, pleasant, no acute distress, answers questions appropriately - Head Head exam: Present: atraumatic, normocephalic - Eye Eye exam: Present: PERRL, conjuntiva pink, sclera anicteric Pupils: Present: PERRL - Neck Neck exam general surgery: Present: supple, trachea midline. Absent: lymphadenopathy - Respiratory Respiratory exam: Present: CTAB. Absent: accessory muscle use, rales, rhonchi, wheezes - Cardiovascular Cardiovascular exam: Present: RRR, +S1, +S2. Absent: diastolic murmur, gallop, rubs, systolic murmur - GI/Abdominal GI/Abdominal exam: Present: normal bowel sounds, soft, no peritoneal signs. Absent: distended, tenderness - Extremities Exam Extremities exam: Present: warm, radial pulses palpable and symmetrical. Absent : calf tenderness, cyanotic, pedal edema - Neurological Exam Neurological exam: Present: CN II-XII intact, oriented X3, no focal deficits. Absent: pronater drift, facial droop, speech deficit - Skin Skin exam: Present: dry, intact
--- NOTE | 2017-07-05 08:35 | Electrocardiograph Report ---
[address] [place] [address] Test Date: 2017-07-01 Pat Name: Deborah Xiong Department: 103 Room: 3A36 Gender: F Hand Laminator: CHELSEA : 1960 Requested By: Kenneth Chao Order Number: [id number] Reading MD: Orlando Bar DO Measurements Intervals [place] Rate: 58 P: 3 HI: 131 QRS: 20 QRSD: 97 T: 2 QT: 403 QTc: 400 Interpretive Statements SINUS BRADYCARDIA Inferior ST-T chnanges possibly due to ischemia Nonspecific anterosetpal ST-T changes Electronically Signed On 07-04-2017 9:51:31 EDT by Orlando Bar DO
== END 2017-07-03 10:17 | disposition home or self-care (01) ==
LOC: EMEROO 11:41 → 3ANU 11:41
PROVIDERS: ADMIT Internal Medicine; ATTEND Internal Medicine
PROC: ENDOEBX (2017-07-02 19:00)